=== PATIENT | female | born 1975 | race American Indian/Alaskan Native ===

== ENCOUNTER 2020-02-21 08:22 | Day surgery (SDC) | payer OTHER ==
[2020-02-21] MEDS ORDERED: ASPIRIN EC 325 MG TAB PO ONE ×2 (09:00→09:08)
[2020-02-21] MEDS ORDERED: SODIUM CHLORIDE 0.9% 500 ML 500 ML ONE (09:07)
[2020-02-21] MEDS: SODIUM CHLORIDE 0.9% 500 ML 500 ML IV SCH ×2 (09:17→10:20)
[2020-02-21] MEDS ORDERED: HEPARIN 10,000 UNITS/10 ML VIAL ONE (09:18)
[2020-02-21] MEDS ORDERED: HEPARIN/NS 5000 UNIT/500ML 1,000 ML IR ONE (09:18)
[2020-02-21] MEDS ORDERED: fentaNYL 100 MCG/2 ML INJ ONE (09:18)
[2020-02-21] MEDS ORDERED: VERAPAMIL 5 MG/2 ML INJ ONE (09:18)
[2020-02-21] MEDS ORDERED: LIDOCAINE (2%) 20 MG/1 ML VIAL 20 ML MDV INFILTRATI ONE (09:18)
[2020-02-21] MEDS ORDERED: MIDAZOLAM 2 MG/2 ML INJ ONE (09:18)
[2020-02-21] MEDS ORDERED: NITROGLYCERIN SYRINGE 3 ML ONE (09:19)
[2020-02-21 09:36] LABS: BUN/Creatinine Ratio 20; Blood Urea Nitrogen 16 mg/dL (7-17); Calcium 9.1 mg/dL (8.4-10.2); Hemolysis Index 5
[2020-02-21 09:45] LABS: Basophils % (Auto) 0.4 % (0.0-1.8); Eosinophils # (Auto) 0.3 K/mm3 (0.0-0.4); Eosinophils % (Auto) 5.5 % (0.0-4.3); Hematocrit 36.6 % (30.3-42.9); Hemoglobin 12.4 gm/dl (10.1-14.3); Lymphocytes # (Auto) 2.1 K/mm3 (1.2-5.4); Lymphocytes % (Auto) 41.1 % (13.4-35.0); Mean Corpuscular HGB Conc 34 % (30-34); Mean Corpuscular Volume 91 fl (79-97); Monocytes # (Auto) 0.4 K/mm3 (0.0-0.8); Monocytes % (Auto) 8.2 % (0.0-7.3); Platelet Count 185 K/mm3 (140-440); Red Blood Count 4.03 M/mm3 (3.65-5.03); Red Cell Distribution Width 12.8 % (13.2-15.2)
[2020-02-21 10:37] LABS: INR 0.98 (0.87-1.13)
--- NOTE | 2020-02-21 10:46 | Cardiac Catherization Report ---
PROCEDURE: Left heart catheterization. ORDERING PHYSICIAN: Dr. Koch. REFERRING PHYSICIAN: Dr. Briones. Procedure is being done by Anali on 02/21/2020. CLINICAL INFORMATION: This is a 44-year-old -[place] female with hypertension, morbid obesity, recurrent chest pain despite medical therapy, is here for left heart catheterization for suspected coronary artery disease. Procedure was done with moderate sedation, started at 10:15 and finished at 10:30 and 15 minutes of moderate sedation Procedure was done via the right radial artery, sterile technique, local anesthesia, 6-[place] radial sheath inserted. Left system engaged with JL3.5 catheter. Left main is large and patent, bifurcates into large caliber LAD with moderate to severe tortuosity. Diagonal 1, diagonal 2 are medium caliber vessel, patent, moderate to severe tortuosity. Circumflex is a large caliber vessel with moderate to severe tortuosity. OM1 and OM2 are medium caliber vessel with moderate tortuosity. RCA engaged with JR4 catheter, is moderate to large caliber vessel with moderate tortuosity. PDA and PLV are small to medium caliber vessel, patent. LV gram done in CARRIE view shows normal LV function, EF 55-60%, LVEDP of 24 mmHg, LV is 166, aortic is 160/90. No gradient across the aortic valve on pullback, 5-[place] catheters all taken over guidewire, 6-[place] radial sheath was discontinued. Radial band applied. No hematoma, no bleeding. SUMMARY: Normal coronaries. Moderate to severe tortuous vessel, hypertensive vessels, normal LV function. Continue risk factor modification. Noncardiac chest pain. Discussed this in detail with the patient and patient's family. JOB# [id number] LY/NTS
[2020-02-21] MEDS ORDERED: ACETAMINOPHEN 325 MG TAB PO ONE (11:08)
[2020-02-21] MEDS ORDERED: ACETAMINOPHEN 325 MG TAB ONE (11:11)
--- NOTE | 2020-02-21 12:01 | Short Stay Summary ---
Short Stay Documentation Date of service: 02/21/20 - History H&P: obtained from office - Allergies and Medications Current Medications: Allergies No Known Allergies Allergy (Verified 02/21/20 08:40) Home Medications Medication Instructions Recorded Confirmed Last Taken Type ALPRAZolam [Xanax TAB] 0.25 mg PO DAILY PRN 02/21/20 02/21/20 Unknown History Sertraline [Zoloft] 25 mg PO DAILY 02/21/20 02/21/20 02/20/20 History 25 mg amLODIPine 10 mg PO DAILY 02/21/20 02/21/20 02/20/20 History 10 mg lisinopriL [Zestril TAB] 40 mg PO DAILY 02/21/20 02/21/20 02/20/20 History 40 mg Active Medications Sodium Chloride (Nacl 0.9% 500 Ml) 500 mls @ 50 mls/hr IV DIRECT VON Stop: 02/21/20 18:59 Last Admin: 02/21/20 10:20 Dose: 50 mls/hr Documented by: - Brief post op/procedure progress note Date of procedure: 02/21/20 Pre-op diagnosis: recurrent chest pain Post-op diagnosis: other (normal coronaries) Procedure: C - see dictated cath report Anesthesia: local Estimated blood loss: none Condition: stable - Disposition Condition at discharge: Good Disposition: [id number] TO HOME OR SELFCARE - Discharge Diagnoses (1) Normal coronary arteries Status: Chronic (2) HTN (hypertension) Status: Chronic (3) Morbid obesity Status: Chronic Short Stay Discharge Plan Activity: advance as tolerated Diet: low fat, low cholesterol, low salt Wound: open to air, keep clean and dry, per your surgeon's advice Follow up with: PRIMARY CARE, [Primary Care Provider] - 7 Days
[2020-02-21 14:04] VITALS: BP 140/87
== END 2020-02-21 14:20 | disposition home or self-care (01) ==
LOC: CATH 08:22
PROVIDERS: ATTEND Internal Medicine
DX: R07.89 Other chest pain (principal); R94.39 Abnormal result of other cardiovascular function study; I10 Essential (primary) hypertension; E66.01 Morbid (severe) obesity due to excess calories; Z68.41 Body mass index [BMI] 40.0-44.9, adult; F41.9 Anxiety disorder, unspecified; Z83.3 Family history of diabetes mellitus; Z79.899 Other long term (current) drug therapy; Z82.49 Family history of ischemic heart disease and other diseases of the circulatory system
CPT/HCPCS: 36415; 80048; 85025; 85610; 85730; 93005; 93458; 99156; C1894; J1644; J2250; J3010; J7040; Q9967